=== PATIENT | male | born 1960 | race Caucasian/White ===

== ENCOUNTER 2023-04-23 06:29 | Day surgery (SDC) | payer OTHER, SELFPAY ==
[2023-04-23 06:39] VITALS: BMI 32.7
[2023-04-23 06:47] VITALS: BP 110/86; PULSE 93; RESP 16; TEMP 36.2; O2SAT 95
[2023-04-23] MEDS: Lactated Ringers 1,000 ML 80 ML IVCONT (07:25)
[2023-04-23] MEDS: Albuterol Sulfate 90 MCG 8 GM INHALER 2 PUFF INHALE (07:25)
--- NOTE | 2023-04-23 07:29 | HO.ANESPROP2 ---
HPI - Anesthesia Eval Consult details Narrative: for colonand upper endo PMFSH Past Medical History Medical History Arrhythmia Asthma Barretts esophagus Diverticulitis GERD (gastroesophageal reflux disease) Family History Family history of problems with anesthesia: No Surgical History Surgical History H/O colonoscopy H/O esophagogastroduodenoscopy H/O partial resection of colon History of Problems with Anesthesia: No Social History Social History Patient Tobacco Use Status: Never used Tobacco Use of substances other than those prescribed or required for medical reasons: No Are you DNR?: No Advance Directives: No Advance Directives Information Provided: Yes Recently lost weight without trying: No Nutrition Risks: No Nutritional Risk Meds Allergies Allergy/AdvReac Type Severity Reaction Status Date / Time No Known Allergies Allergy Unverified 07/18/20 16:50 Active Medications: Current Medications Lactated Ringer's (Lr) 1,000 mls @ 80 mls/hr IVCONT .[id number] MELISA Last Admin: 04/23/23 07:25 Dose: 80 mls/hr Sodium Biphosphate/Sodium Phosphate (Sodium Phosphate,[place]-Dibasic 133 Ml Enema) 133 ml CO ONCE PRN PRN Reason: Poor Colonoscopy Prep Results Home Medications Medication Instructions Recorded Confirmed Last Taken Type esomeprazole magnesium 40 mg 40 mg PO DAILY 04/22/23 04/22/23 Unknown History capsule,delayed release hydroxyzine HCl 50 mg tablet 50 mg PO QID PRN Anxiety 04/22/23 04/22/23 Unknown History melatonin 5 mg tablet 5 mg PO BEDTIME 04/22/23 04/22/23 Unknown History Exam Exam Date and Time: April 23, 2023 0729 Height,Weight and Vital Signs: Height 6 ft 2 in Weight 115.666 kg Last Vital Signs Temp 97.1 F 04/23/23 06:47 Pulse 93 04/23/23 06:47 Resp 16 04/23/23 06:47 BP 110/86 04/23/23 06:47 Pulse Ox 95 04/23/23 06:47 O2 Del Method Room Air 04/23/23 06:47 Airway Mallampati Class: II TM Dist: >3cm Neck ROM: Full Heart: rrr Lungs: cta Assessment and Plan Assessment Anesthesia Assessment: Anesthesia Plan Discussed and Chart Reviewed Final Anesthetic Review Family History of Problems with Anesthesia: No History of Problems with Anesthesia: No NPO: Yes ASA Class: II Final Preanesthetic Review: No Changes in Pt Med Stat, Meds/Allgs Chart Reviewed, Consent Obtained/Reviewed and Anes Risks/Benef Reviewed Patient Risk: Low Procedure Risk: Low Anesthetic Plan Anesthetic Plan: MAC: Disposition: Standard PACU
[2023-04-23 08:48] VITALS: BP 105/71; PULSE 89; RESP 16; TEMP 36.2; O2SAT 97
--- NOTE | 2023-04-23 08:55 | PM.OP ---
Brief Operative Note Date of Service: 04/23/23 Pre-op diagnosis: Castelan's, Screening Post-op diagnosis: other (Hiatal hernia, Colon polyp) Procedure: EGD with bx, Colonoscopy to the cecum with bx/removal of polyp Surgeon: Jose Miguel Glynn Anesthesia: MAC Was an Wood Boring Machine Operator used for this Procedure?: No Estimated blood loss (mL): 2.0 Pathology: other (A. EG Junction at 35cm B. Transverse colon polyp) Condition: stable Disposition: PACU
[2023-04-23 09:03] VITALS: BP 105/72; PULSE 89; RESP 20; TEMP 36.3; O2SAT 97
--- NOTE | 2023-04-23 09:45 | OP_ITS ---
DATE OF SERVICE: 04/23/2023 SURGEON: Jose Miguel Glynn MD INDICATIONS: The patient presents for followup of gastroesophageal reflux with associated Castelan's esophagus, personal history of tubular adenoma of the colon, and colorectal cancer screening. Full consent has been obtained from him for this, including risks of bleeding and perforation. PREOPERATIVE DIAGNOSIS: POSTOPERATIVE DIAGNOSIS: PROCEDURE PERFORMED: Esophagogastroduodenoscopy with biopsies, and colonoscopy to the cecum with biopsy and removal of polyp. ESTIMATED BLOOD LOSS: COMPLICATIONS: ANESTHESIA: Monitored anesthesia care. ASSISTANTS: SPECIMENS: PREOPERATIVE DIAGNOSES: Gastroesophageal reflux with Castelan's esophagus, personal history of tubular adenoma of the colon, and colorectal cancer screening. POSTOPERATIVE DIAGNOSES: Gastroesophageal reflux with Castelan's esophagus, personal history of tubular adenoma of the colon, and colorectal cancer screening, hiatal hernia, gastric polyps, colon polyp, diverticulosis, internal hemorrhoids, external hemorrhoids. DESCRIPTION OF PROCEDURE: The patient was placed in the left lateral decubitus position the Olympus video gastroscope was passed in the posterior oropharynx and upper esophagus under direct vision. The scope was passed slowly to the distal esophagus. The gastroesophageal junction appeared at 35 cm. There was some slight irregularity consistent with less than 1 cm areas of possible Castelan's mucosa. There was no esophagitis nor any lesions. The scope entered the stomach. There was a moderate-sized hiatal hernia. There were multiple hyperplastic appearing proximal gastric polyps. The scope was advanced to the pylorus and the duodenum was cannulated to the descending portion. The duodenum including the bulb appeared normal without mass or ulceration. The scope was withdrawn back in the stomach. The gastric antrum and body appeared normal with good peristalsis. The scope was retroflexed visualizing the proximal stomach carefully, which appeared normal, without any sign of mass or ulceration, other than the hyperplastic appearing gastric polyps. These were not biopsied as they had been in the past. The scope was straightened and withdrawn back to the esophagus. Biopsies were obtained at the EG junction at 35 cm. Proximal to this, the esophageal mucosa appeared normal. The scope was withdrawn from the patient. He was turned around for the colonoscopy. The digital rectal exam revealed no abnormalities other than external hemorrhoids. The Olympus video pediatric colonoscope was entered into the rectum and advanced easily to the cecum. Once in the cecum, I did identify normal-appearing cecal pouch with appendiceal orifice and a normal-appearing ileocecal valve. The entire cecum and ileocecal valve appeared normal. The scope was then slowly withdrawn assessing all mucosal surfaces carefully. Preparation was excellent. In the transverse colon was a 3 mm polyp, which was biopsied and completely removed with a cold biopsy forceps. There were scattered diverticulae in the transverse colon and descending colon. I did not visualize any other polyps, colitis, nor angiodysplasia. The anastomosis was visualized at 20 cm and appeared normal. I did not visualize any sign of colitis nor angiodysplasia. In the rectum, scope was retroflexed visualizing internal hemorrhoids, but no other pathology. The rectal mucosa appeared normal. The scope was straightened and withdrawn from the patient. He tolerated the procedure well and was returned to the recovery area in stable condition. IMPRESSION: 1. Hiatal hernia, history of Castelan's esophagus. 2. Gastric polyps. 3. Colon polyp. 4. Diverticulosis. PLAN: PLAN: The results of the biopsies will be checked. I would recommend a repeat upper endoscopy and colonoscopy in 5 years for further screening. He will continue his esomeprazole for relief of his reflux. He was advised not to use any aspirin or NSAIDs for 1 week. This has been discussed with his . MD JORDAN Hooker/MAGED / [id number] MTDNoel
== END 2023-04-23 09:34 | disposition home or self-care (01) ==
PROVIDERS: Visit Provider Internal Medicine
PROC: (CPT 45380; principal; 2023-04-23 07:30)
DX: Z12.11 Encounter for screening for malignant neoplasm of colon (principal); Z86.010 Personal history of colon polyps; D12.3 Benign neoplasm of transverse colon; K57.30 Diverticulosis of large intestine without perforation or abscess without bleeding; K64.8 Other hemorrhoids; K64.4 Residual hemorrhoidal skin tags; K21.9 Gastro-esophageal reflux disease without esophagitis; K22.70 Barrett's esophagus without dysplasia; K31.7 Polyp of stomach and duodenum; K44.9 Diaphragmatic hernia without obstruction or gangrene; Z90.49 Acquired absence of other specified parts of digestive tract; Z79.899 Other long term (current) drug therapy
CPT/HCPCS: 45380; 43239; 88305; 88342

== ENCOUNTER 2024-04-26 08:22 | Day surgery (SDC) | payer OTHER, SELFPAY ==
[2024-04-24 14:34] VITALS: BMI 33.6
--- NOTE | 2024-04-25 10:20 | HO.ANESPROP2 ---
Documented by User: Alondra Badillo NP 04/25/24 10:21 HPI - Anesthesia Eval Consult details Narrative: 63yo M for Upper Endoscopy [facility] Past Medical History Medical History Arrhythmia Asthma Barretts esophagus Diverticulitis GERD (gastroesophageal reflux disease) Family History Family history of problems with anesthesia: No Surgical History Surgical History H/O colonoscopy H/O esophagogastroduodenoscopy H/O partial resection of colon History of Problems with Anesthesia: No Social History Social History Patient Tobacco Use Status: Never used Tobacco Use of substances other than those prescribed or required for medical reasons: No Are you DNR?: No Advance Directives: No Advance Directives Information Provided: Yes Meds Allergies Allergy/AdvReac Type Severity Reaction Status Date / Time No Known Allergies Allergy Unverified 07/18/20 16:50 Home Medications ?Medication ?Instructions ?Recorded ?Confirmed ?Last Taken ?Type esomeprazole magnesium 40 mg 40 mg PO DAILY 04/22/23 04/24/24 Unknown History capsule,delayed release hydroxyzine HCl 50 mg tablet 50 mg PO QID PRN Anxiety 04/22/23 04/24/24 Unknown History melatonin 5 mg tablet 5 mg PO BEDTIME 04/22/23 04/24/24 Unknown History amlodipine 5 mg-benazepril 10 mg 1 cap PO DAILY 04/24/24 04/24/24 Unknown History capsule Exam Height,Weight and Vital Signs: Height 6 ft 2 in Weight 118.841 kg Assessment and Plan Assessment Anesthesia Assessment: Chart Reviewed Final Anesthetic Review Family History of Problems with Anesthesia: No History of Problems with Anesthesia: No Documented by User: Delvis Blair MD 04/26/24 10:35 [facility] Past Medical History Medical History Arrhythmia Asthma Barretts esophagus Diverticulitis GERD (gastroesophageal reflux disease) Surgical History Surgical History H/O colonoscopy H/O esophagogastroduodenoscopy H/O partial resection of colon Social History Social History Patient Tobacco Use Status: Never used Tobacco Use of substances other than those prescribed or required for medical reasons: No Are you DNR?: No Advance Directives: No Advance Directives Information Provided: Yes Meds Allergies Allergy/AdvReac Type Severity Reaction Status Date / Time No Known Allergies Allergy Unverified 07/18/20 16:50 Home Medications ?Medication ?Instructions ?Recorded ?Confirmed ?Last Taken ?Type esomeprazole magnesium 40 mg 40 mg PO DAILY 04/22/23 04/24/24 Unknown History capsule,delayed release hydroxyzine HCl 50 mg tablet 50 mg PO QID PRN Anxiety 04/22/23 04/24/24 Unknown History melatonin 5 mg tablet 5 mg PO BEDTIME 04/22/23 04/24/24 Unknown History amlodipine 5 mg-benazepril 10 mg 1 cap PO DAILY 04/24/24 04/24/24 Unknown History capsule Exam Airway Mallampati Class: II TM Dist: >3cm Neck ROM: Full Assessment and Plan Assessment Anesthesia Assessment: Anesthesia Plan Discussed Final Anesthetic Review NPO: Yes ASA Class: III Final Preanesthetic Review: No Changes in Pt Med Stat, Meds/Allgs Chart Reviewed, Consent Obtained/Reviewed and Anes Risks/Benef Reviewed Patient Risk: Intermediate Procedure Risk: Low Anesthetic Plan Anesthetic Plan: TIVA Disposition: Standard PACU
[2024-04-26 09:37] VITALS: BMI 33.1
[2024-04-26 09:41] VITALS: BP 126/94; PULSE 78; RESP 18; TEMP 36.2; O2SAT 98
[2024-04-26] MEDS: Lactated Ringers 1,000 ML 100 ML IVCONT (09:50)
[2024-04-26 10:34] VITALS: BP 113/89; PULSE 80; RESP 18; TEMP 36.1; O2SAT 95
--- NOTE | 2024-04-26 10:37 | PC.NURSE ---
24hr update documented on paper.
--- NOTE | 2024-04-26 10:38 | P.BOP_ITS ---
Brief Operative Note Date of Service: 04/26/24 Pre-op diagnosis: Castelan's with low grade dysplasia Post-op diagnosis: other (Same, Hiatal hernia) Procedure: EGD with biopsies, WATS brushings, and TissueCypher analysis Surgeon: Jose Miguel Glynn MD Anesthesia: MAC Was an Floating Derrick Operator used for this Procedure?: No Estimated blood loss (mL): 2.0 Pathology: other (A. EG Junction at 35cm) Condition: stable Disposition: PACU
[2024-04-26 10:49] VITALS: BP 144/92; PULSE 83; RESP 17; TEMP 36.4; O2SAT 98
--- NOTE | 2024-04-26 12:31 | OP_ITS ---
DATE OF SERVICE: 04/26/2024 SURGEON: Jose Miguel Glynn MD INDICATIONS: The patient presents for evaluation of gastroesophageal reflux, Castelan's esophagus with low-grade dysplasia, and known hiatal hernia. Full consent has been obtained from him for this, including risks of bleeding and perforation. PREOPERATIVE DIAGNOSIS: POSTOPERATIVE DIAGNOSIS: PROCEDURE PERFORMED: Esophagogastroduodenoscopy with biopsies, and WATS brushings. Tissue specimen was also sent for tissue Cypher analysis. ESTIMATED BLOOD LOSS: COMPLICATIONS: ANESTHESIA: Monitored anesthesia care. ASSISTANTS: SPECIMENS: PREOPERATIVE DIAGNOSES: Castelan's esophagus with low-grade dysplasia, gastroesophageal reflux, hiatal hernia. POSTOPERATIVE DIAGNOSES: Castelan's esophagus with low-grade dysplasia, gastroesophageal reflux, hiatal hernia. DESCRIPTION OF PROCEDURE: The patient was placed in the left lateral decubitus position. The Olympus video gastroscope was passed in the posterior oropharynx and upper esophagus under direct vision. The scope was passed slowly to the distal esophagus. The gastroesophageal junction was seen at 35 cm. There were small, less than 1 cm, areas of Castelan's-appearing mucosa right at the EG junction. It would basically prolapse into the esophagus from the hiatal hernia. It was difficult to obtain specimens from that area due to the patient's breathing, coughing, and the hiatal hernia. The scope was advanced to the pylorus and the duodenum was cannulated to the descending portion. The duodenum including the bulb appeared normal without mass or ulceration. The scope was withdrawn back in the stomach. The gastric antrum and body appeared normal with good peristalsis. The scope was retroflexed, visualizing the proximal stomach carefully, which revealed his known multiple hyperplastic-appearing gastric polyps, but no sign of any mass or ulceration. The scope was straightened and withdrawn back in the esophagus. Again, it was difficult to sit at the EG junction due to his breathing, coughing, and the hiatal hernia. However, I did obtain multiple biopsies from right at the EG junction at 35 cm from the Castelan's-appearing mucosa. I then obtained WATS brushings from the same area, although I am suspicious that the tissue collection with brushings may not be ideal. Proximal to the EG junction, the esophageal mucosa appeared normal. The scope was withdrawn from the patient. He tolerated the procedure well and was returned to the recovery area in stable condition. IMPRESSION: 1. Moderate-sized hiatal hernia. 2. History of Castelan's esophagus with low-grade dysplasia. 3. Known gastric polyps. PLAN: The results of the biopsies will be checked. Of note, tissue has also been sent from the site at the EG junction for a Cypher test. He will continue his evening dose of Nexium 40 mg. He does report that he is trying not to eat for 2 to 3 hours before going to sleep. He still has occasional symptoms of nocturnal heartburn nonetheless. I will plan to see him in followup in the office to review the results of the biopsies, plan further biopsies as needed and/or consider ablation if indeed, there is evidence of dysplasia persisting. If his reflux continues to be a problem despite trying to improve his lifestyle, then we could consider hiatal hernia surgery. As we have reviewed in the past, I do think a big part of his reflux is that of his weight and dietary habits. MD JORDAN Hooker/MAGED / [id number] MTDD
== END 2024-04-26 11:20 | disposition home or self-care (01) ==
PROVIDERS: PCP Pediatrics; Visit Provider Internal Medicine
PROC: 0DJ08ZZ Inspection of Upper Intestinal Tract, Via Natural or Artificial Opening Endoscopic (ICD-10-PCS; CPT 43235; principal; 2024-04-26 09:30)
DX: K22.710 Barrett's esophagus with low grade dysplasia (principal); K21.9 Gastro-esophageal reflux disease without esophagitis; K44.9 Diaphragmatic hernia without obstruction or gangrene; K31.7 Polyp of stomach and duodenum; I10 Essential (primary) hypertension; J45.909 Unspecified asthma, uncomplicated; Z79.899 Other long term (current) drug therapy; Z90.49 Acquired absence of other specified parts of digestive tract; Z98.890 Other specified postprocedural states
CPT/HCPCS: 43239; 88305; 88313; J2704

== ENCOUNTER 2025-04-27 06:27 | Day surgery (SDC) | payer OTHER, SELFPAY ==
--- OUTSIDE RECORDS SUMMARY | 2025-03-29 10:50 | XMS_ITS | Patient Health Record ---
Author Organization [facility] Address [address] [place] [address] Care Team Providers Care Brake Rider Name Role Phone Mary Beebe Primary Care Provider Jose Miguel Arevalo [phone] Allergies No Known Allergies Results Component Value Reference Range Notes Pathology Reviewed date:07/20/2024 07:18:00 PM Interpretation: Performing Lab:[facility], [address] [place] [id number] Notes/Report: Name: Fransico Castrejon Age/Sex: 63/M : 1960 Unit#: [id number] Attend Dr: Jose Miguel Monteiro MD Re04/26/24 Status : [facility] Location: [facility] Disch: SPEC : [id number] RECD : 04/26/24-1137 STATUS: CECIL DENISE NUM: [id number] JEFFERSON: 04/26/24-[address]: Jose Miguel Monteiro MD ENTERED: 04/26/24-11 56 SP TYPE: Surgical OTHR DR: Mary Beebe MD ORDERED: HE Stain/3 , Gross Micro L4, Special st. 2, Eso bx BA w/exc, AB/PAS COMMENTS: 8 unstaine d slides sent to [employer] for TissueCypher on 05/05/24. Addendum Addendum 1 Entered: 06/05/24 TissueCypher results: Risk Class:? Intermediate Risk Score:? 5.7 (range 0 ? 10) 5-year probability o f progression:? 8 % See full report in t EMR - report/pathology section as a scanned report (camera icon). Addendum Signed ____ __(signature on file) Francia La Barge 06/05/24 173 Diagnosis Esophagogastric junc tion, at 35 cm, biopsy: Squamocolumnar mucosa with mild chronic active inflammation, hyperplasia, and focal intestinal metaplasia; negative for dysplasia (see comment). Comment: These findi ngs are consistent with Castelan?s esophagus if the biopsies were taken from above the anatomic gastroesophageal junction. Clinical and endoscopic correlation is advised. Clinical History Pre-Op Dx: Castelan's esophagus, GERD Post-Op Dx: Hiatal h ernia, reflux, hx Castelan's Microscopic Description Microscopic sections reviewed. AB/PAS is positive for intestinal metaplasia. Control stains appropriately. CONTINUED ON NEXT PAGE Name: Fransico Castrejon Age/Sex: 63/M : 1960 Unit#: [id number] Attend Dr: Jose Miguel Monteiro MD Re04/26/24 Status : [facility] Location: [facility] Disch: SPEC : [id number] RECD : 04/26/247 STATUS: CECIL DENISE NUM: [id number] JEFFERSON: 04/26/24-[address] [facility] DR: Jose Miguel Monteiro MD ENTERED: 04/26/24-11 56 SP TYPE: Surgical OTHR DR: Mary Beebe MD ORDERED: HE Stain/3, Gross Micro L4, Special st. 2, Eso bx BA w/exc, AB/PAS COMMENTS: 8 unstaine d slides sent to [employer] for TissueCypher on 05/05/24. Material Received EG junction at 35 cm , hx of Castelan's Gross Description Received in formalin labeled ?EG junction at 35 cm? are 5 barahona-pink and pink-red irregular tissue fragments eac h measuring 0.25 cm with scant red-maroon blood, submitted in toto in a cassette labeled A. CEDS Special studies orde red and performed: AB/PAS stains on A1. Copies To: Mary Beebe MD [facility] [address] [place] [address] Jose Miguel Monteiro MD [address] [place] [phone] Signed (si gnature on file) Francia Charisse 04/27/24 1557 END OF REPORT Reason For Referral Referring Provider First Name Mary Referring Provider Last Name Ny Referring Provider Speciality Internal M edicine Referred Organization [facility] Referred Provider Jose Miguel Monteiro Referred Address [address] [place] [address],[place], [place],[address], Referred Provider Specialty Gastroentero logy General Notes Roslyn Logan 024 10:28:53 AM EST > REQUESTED A [facility] REFERRAL FROM DR MARY BEEBE'S OFFICE FOR VISIT WITH DR MONTEIRO ON [phone] Referral Priority Routine Medications Medication SIG (Take, Route, Frequency, Duration) Notes Start Date End Date Status Melatonin 5 MG 1 tablet in the even ing Orally Once a day for 30 day(s) Active hydrOXYzine HCl 50 MG TAKE 1 TABLET BY M OUTH 4 TIMES A DAY NEEDED FOR ANXIETY Oral for 10 Active Tylenol 325 MG 1 tablet as needed O rally every 4 hrs Active Esomeprazole Magnesium 40 MG TAKE 1 CAPSULE Orally Twice a day for 90 days Active amLODIPine Besy-Benazepril HCl 5-10 MG TAKE 1 CAPSULE BY MOUTH DAILY 90 DAYS, FOR MANAGEMENT OF HIGH BLOOD PRESSURE. Oral for 90 Active Immunizations Vaccine Route Administration Date Status Comme nts Influenza Unknown 09/01/2018 Administered Influenza Unknown 08/13/2021 Administered Influenza Unknown 09/15/2022 Refused Influenza Unknown 11/10/2024 Refused Problems Problem Type SNOMED Code ICD Code Onset Dates Problem Status W/U Status Risk Notes Problem Gastro-esophageal reflux disease without esophagitis (640144020) Gastro-esophageal reflux disease without esophagitis (K21.9) Active confirmed Problem Screening for malignant neoplasm of colon (784776910) Encounter for screening for malignant neoplasm of colon (Z12.11) Active confirmed Problem 870982262 History of adenomatous polyp of colon (Z86.010) Active confirmed Problem Benign neoplasm of stomach (46389619) Polyp of stomach and duodenum (K31.7) Active confirmed Problem Diverticular disease of colon (581168239) Diverticulosis of large intestine without perforation or abscess without bleeding (K57.30) Active confirmed Problem History of gastrointestinal tract bypass (487536865) Intestinal bypass and anastomosis status (Z98.0) Active confirmed Problem 037196198 Gastroesophageal reflux disease without esophagitis (K21.9) Active confirmed Problem 941233707 Castelan''s esophagus without dysplasia (K22.70) Active confirmed Problem Castelan's esophagus (283056104) 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) Active confirmed Vital Signs Temperature 97.7 degrees Fahrenheit 11/10/2024 Blood pressure diastolic 00 mm Hg 11/10/2024 Height 74 in 11/10/2024 Blood pressure systolic 000 mm Hg 11/10/2024 Weight 249 lb 6 oz lbs 11/10/2024 BMI 32.01 kg/m2 11/10/2024 Encounters Encounter Location Date Provider Diagnosis [facility] [address] [place], [place] [id number] 04/26/2024 Jose Miguel Monteiro Castelan''s esophagus with low grade dysplasia K22.710 ; Hiatal hernia K44.9 ; Polyp of stomach and duodenum K31.7 and Gastro-esophageal reflux disease without esophagitis K21.9 [facility] [address] [place] [phone] 11/10/2024 Jose Miguel Monteiro Castelan''s esophagus with low grade dysplasia K22.710 ; Hiatal hernia K44.9 and Gastro-esophageal reflux disease without esophagitis K21.9 [facility] [address] [place] [phone] 06/11/2024 Jose Miguel Monteiro [facility] [address] [place] [address] 10/19/2024 Jose Miguel Monteiro Assessments Encounter Date Diagnosis (ICD Code) Assessment Notes Treatment Notes Treatment Clinical Notes Section Notes 04/26/2024 Hiatal hernia (ICD-10 - K44.9) 04/26/2024 Castelan''s esophagus with low grade dysplasia (ICD-10 - K22.710) 11/10/2024 Hiatal hernia (ICD-10 - K44.9) Overall, Rhina appears quite well. We did review his history of the chronic reflux, hiatal hernia, and Castelan's esophagus with associated dysplasia in detail today. We did review the significance of dysplasia and the increased risk for esophageal cancer. At this point, given the biopsies and brushings that were negative for dysplasia last April, but his previous history of dysplasia seen on previous biopsies, I would be inclined to continue to keep a close eye on things with another upper endoscopy this coming April. In the meantime, I did advise him to stay on the PPI at least once a day but takem it twice a day as needed. I did advise him to certainly continue to try to lose weight, watch his food intake, and eat small meals. We did review the potential for hiatal hernia surgery but at this point he would like to try to avoid that. We also discussed that at some point he may need consideration for endoscopic ablation of the Castelan's tissue if there is evidence of persistent low-grade dysplasia, or certainly if there is evidence of high-grade dysplasia again. Full consent was obtained from him for his upper endoscopy including risks of bleeding and perforation. The procedure will be done with monitored anesthesia care. We did review that he will be due for a colonoscopy in 2027 for screening. Rhina was comfortable with this plan. Thank you again for allowing me to participate in Rhina's care. I shall continue to keep you advised of his progress. 11/10/2024 Castelan''s esophagus with low grade dysplasia (ICD-10 - K22.710) Continue the Esomeprazole once or twice a day for the reflux Continue to watch diet, limit meal size, lose weight, etc Overall, Rhina appears quite well. We did review his history of the chronic reflux, hiatal hernia, and Castelan's esophagus with associated dysplasia in detail today. We did review the significance of dysplasia and the increased risk for esophageal cancer. At this point, given the biopsies and brushings that were negative for dysplasia last April, but his previous history of dysplasia seen on previous biopsies, I would be inclined to continue to keep a close eye on things with another upper endoscopy this april. In the meantime, I did advise him to stay on the PPI at least once a day but takem it twice a day as needed. I did advise him to certainly continue to try to lose weight, watch his food intake, and eat small meals. We did review the potential for hiatal hernia surgery but at this point he would like to try to avoid that. We also discussed that at some point he may need consideration for endoscopic ablation of the Castelan's tissue if there is evidence of persistent low-grade dysplasia, or certainly if there is evidence of high-grade dysplasia again. Full consent was obtained from him for his upper endoscopy including risks of bleeding and perforation. The procedure will be done with monitored anesthesia care. We did review that he will be due for a colonoscopy in 2027 for screening. Rhina was comfortable with this plan. Thank you again for allowing me to participate in Rhina's care. I shall continue to keep you advised of his progress. 04/26/2024 Polyp of stomach and duodenum (ICD-10 - K31.7) 11/10/2024 Gastro-esophage al reflux disease without esophagitis (ICD-10 - K21.9) Overall, Rhina appears quite well. We did review his history of the chronic reflux, hiatal hernia, and Castelan's esophagus with associated dysplasia in detail today. We did review the significance of dysplasia and the increased risk for esophageal cancer. At this point, given the biopsies and brushings that were negative for dysplasia last April, but his previous history of dysplasia seen on previous biopsies, I would be inclined to continue to keep a close eye on things with another upper endoscopy this april. In the meantime, I did advise him to stay on the PPI at least once a day but takem it twice a day as needed. I did advise him to certainly continue to try to lose weight, watch his food intake, and eat small meals. We did review the potential for hiatal hernia surgery but at this point he would like to try to avoid that. We also discussed that at some point he may need consideration for endoscopic ablation of the Castelan's tissue if there is evidence of persistent low-grade dysplasia, or certainly if there is evidence of high-grade dysplasia again. Full consent was obtained from him for his upper endoscopy including risks of bleeding and perforation. The procedure will be done with monitored anesthesia care. We did review that he will be due for a colonoscopy in 2027 for screening. Rhina was comfortable with this plan. Thank you again for allowing me to participate in Rhina's care. I shall continue to keep you advised of his progress. 04/26/2024 Gastro-esophage al reflux disease without esophagitis (ICD-10 - K21.9) Plan Of Treatment Future Test Test Name Order Date COLONOSCOPY 04/17/2015 UPPER GI ENDOSCOPY 05/03/2015 UPPER GI ENDOSCOPY 09/01/2019 UPPER GI ENDOSCOPY 09/15/2022 COLONOSCOPY 09/15/2022 UPPER GI ENDOSCOPY 03/07/2024 UPPER GI ENDOSCOPY 11/10/2024 Next Appt Details Provider Name:Jose Miguel Monteiro , 04/27/2025 07:30:00 AM, [address] [place] [address], [phone], Insurance Providers Payer Name Payer Address Payer Phone Subscriber Number Group Number Insured Name Patient Relationship to Insured Coverage Start Date Coverage End Date [employer] [address] PATEL SHUKLA [phone] [id number] [facility] Durán Self - patient is the insured Medical (General) History Medical History History ICD Code GERD with Castelan's esophagu s and HH-EGD in 07/2012 with small area of Castelan's and indefinite dysplasia. He had a followup endoscopy in April of 2013 with the finding of the small area of Castelan's esophagus and a tiny area of low-grade dysplasia. He subsequently underwent a 24-hour pH study off the Nexium and this was positive for acid reflux. He also had an esophageal motility study showing normal relaxation of the lower esophageal sphincter, normal esophageal peristalsis, and borderline low esophageal contractility. His EGD in 12/2013 revealed the small area of Castelan's and no dysplasia, as well as the hiatal hernia--he had previously seen Dr. Ray for consideration of a hiatal hernia repair, but he ultimately decided against that. EGD in 11/2015 with Castelan's but no dysplasia Colonoscopy in August 2009 with a tubular adenoma; neg. colonoscopy in 11/2015 except for internal hemorrhoids mild diverticulosis proximal to his colonic anastomosis Diverticulitis-surgery as below Denies IL,DM,CVA,Lung disease,renal dise ase Asthma--? in relation to his reflux and hiatal hernia EGD in 11/2019 with a small a jo ann of Castelan's and no dysplasia--moderate-sized hiatal hernia again noted Hypertension Upper endoscopy in April revealed his known hiatal hernia and small area of Castelan's esophagus, but biopsies revealed evidence of low-grade dysplasia and a very questionable area of high-grade dysplasia Colonoscopy in April of 2023 revealed a small tubular adenoma that was removed Upper endoscopy in April revealed his known moderate size hiatal hernia and small areas of Castelan's esophagus of less than 1 cm. There was no esophagitis. Biopsies were negative for dysplasia and the WATS brushings were also negative for dysplasia. The tissue Cypher test showed intermediate risk of progression of the Castelan's dysplasia over a 5 year period Surgical History Surgery Date(Month/Year) Sigmoid resection for diverticulitis in 12/2010
[2025-04-25 13:34] VITALS: BMI 32.0
--- NOTE | 2025-04-26 12:12 | HO.ANESPROP2 ---
HPI - Anesthesia Eval Consult details Narrative: 64[facility] Past Medical History Medical History Arrhythmia Asthma Diverticulitis Barretts esophagus GERD (gastroesophageal reflux disease) Family History Family history of problems with anesthesia: No Surgical History Surgical History H/O partial resection of colon H/O colonoscopy H/O esophagogastroduodenoscopy History of Problems with Anesthesia: No Social History Social History Are you a primary resident care assistant to a significant other at home: No Do you presently have visiting nurse or other home services: No Patient Tobacco Use Status: Never used Tobacco Are you DNR?: No Advance Directives: No Advance Directives Information Provided: Yes Poor oral hygiene: No Meds Allergies Allergy/AdvReac Type Severity Reaction Status Date / Time No Known Allergies Allergy Verified 04/27/25 06:45 Home Medications ?Medication ?Instructions ?Recorded ?Confirmed ?Last Taken ?Type esomeprazole magnesium 40 mg 40 mg PO DAILY 04/22/23 04/25/25 Unknown History capsule,delayed release hydroxyzine HCl 50 mg tablet 50 mg PO QID PRN Anxiety 04/22/23 04/25/25 Unknown History melatonin 5 mg tablet 5 mg PO BEDTIME 04/22/23 04/25/25 Unknown History amlodipine 5 mg-benazepril 10 mg 1 cap PO DAILY 04/24/24 04/25/25 Unknown History capsule fluticasone 250 mcg-salmeterol 50 inhalation 04/27/25 04/27/25 Unknown History mcg/dose blistr powdr for inhalation (Wixela Inhub) mepolizumab 100 mg/mL subcutaneous mg subcut 04/27/25 04/27/25 Unknown History auto-injector (Nucala) quetiapine 25 mg tablet 25 mg PO BEDTIME 04/27/25 04/27/25 Unknown History sertraline 50 mg tablet mg PO 04/27/25 04/27/25 Unknown History Exam Height,Weight and Vital Signs: Height 6 ft 2 in Weight 113.115 kg Assessment and Plan Assessment Anesthesia Assessment: Chart Reviewed Final Anesthetic Review Family History of Problems with Anesthesia: No History of Problems with Anesthesia: No
[2025-04-27 06:42] VITALS: BMI 30.6
[2025-04-27] MEDS: Lactated Ringers 1,000 ML 100 ML IVCONT (06:54)
[2025-04-27 06:55] VITALS: BP 118/71; PULSE 66; RESP 18; TEMP 36.7; O2SAT 99
--- NOTE | 2025-04-27 07:31 | HO.ANESPROP2 ---
[facility] Past Medical History Medical History Arrhythmia Asthma Diverticulitis Barretts esophagus GERD (gastroesophageal reflux disease) Functional capacity: independent ambulation Family History Family history of problems with anesthesia: No Surgical History Surgical History H/O partial resection of colon H/O colonoscopy H/O esophagogastroduodenoscopy History of Problems with Anesthesia: No Social History Social History Are you a primary healthcare administrator to a significant other at home: No Do you presently have visiting nurse or other home services: No Patient Tobacco Use Status: Never used Tobacco Are you DNR?: No Advance Directives: No Advance Directives Information Provided: Yes Poor oral hygiene: No Meds Allergies Allergy/AdvReac Type Severity Reaction Status Date / Time No Known Allergies Allergy Verified 04/27/25 06:45 Active Medications: Current Medications Albuterol Sulfate (Albuterol Sulfate (0.083%) 2.5 Mg/3 Ml Vial.Neb) 2.5 mg INHALE ONCE PRN PRN Reason: Shortness of Breath/Wheezing Lactated Ringer's (Lr) 1,000 mls @ 100 mls/hr IVCONT .Q10H MELISA Last Admin: 04/27/25 06:54 Dose: 100 mls/hr Home Medications ?Medication ?Instructions ?Recorded ?Confirmed ?Last Taken ?Type esomeprazole magnesium 40 mg 40 mg PO DAILY 04/22/23 04/25/25 Unknown History capsule,delayed release hydroxyzine HCl 50 mg tablet 50 mg PO QID PRN Anxiety 04/22/23 04/25/25 Unknown History melatonin 5 mg tablet 5 mg PO BEDTIME 04/22/23 04/25/25 Unknown History amlodipine 5 mg-benazepril 10 mg 1 cap PO DAILY 04/24/24 04/25/25 Unknown History capsule fluticasone 250 mcg-salmeterol 50 inhalation 04/27/25 04/27/25 Unknown History mcg/dose blistr powdr for inhalation (Wixela Inhub) mepolizumab 100 mg/mL subcutaneous mg subcut 04/27/25 04/27/25 Unknown History auto-injector (Nucala) quetiapine 25 mg tablet 25 mg PO BEDTIME 04/27/25 04/27/25 Unknown History sertraline 50 mg tablet mg PO 04/27/25 04/27/25 Unknown History Exam Height,Weight and Vital Signs: Height 6 ft 2 in Weight 108.227 kg Last Vital Signs Temp 98.0 F 04/27/25 06:55 Pulse 66 04/27/25 06:55 Resp 18 04/27/25 06:55 BP 118/71 04/27/25 06:55 Pulse Ox 99 04/27/25 06:55 O2 Del Method Room Air 04/27/25 06:55 Airway Mallampati Class: II TM Dist: >3cm Neck ROM: Full Heart: RRR Lungs: CTA Assessment and Plan Assessment Anesthesia Assessment: Anesthesia Plan Discussed Final Anesthetic Review Family History of Problems with Anesthesia: No History of Problems with Anesthesia: No NPO: Yes ASA Class: II Final Preanesthetic Review: Meds/Allgs Chart Reviewed, Consent Obtained/Reviewed and Anes Risks/Benef Reviewed Patient Risk: Low Procedure Risk: Low Anesthetic Plan Anesthetic Plan: MAC: Disposition: Standard PACU
[2025-04-27 08:12] VITALS: BP 79/50; PULSE 68; RESP 16; TEMP 36.1; O2SAT 96
--- NOTE | 2025-04-27 08:20 | P.BOP_ITS ---
Brief Operative Note Date of Service: 04/27/25 Pre-op diagnosis: Castelan's Post-op diagnosis: other (Same, Hiatal hernia) Procedure: EGD with biopsies, WATS brushings, and Cypher study Surgeon: Jose Miguel Glynn MD Anesthesia: MAC Was an Community Marketing Manager used for this Procedure?: No Estimated blood loss (mL): 2.0 Pathology: other (A. EG Junction at 35cm B. Gastric antrum) Condition: stable Disposition: PACU
[2025-04-27 08:27] VITALS: BP 112/75; PULSE 68; RESP 18; TEMP 36.3; O2SAT 97
--- NOTE | 2025-04-27 08:55 | OP_ITS ---
DATE OF SERVICE: 04/27/2025 SURGEON: Jose Miguel Glynn MD PREOPERATIVE DIAGNOSIS: Castelan esophagus with low-grade dysplasia. POSTOPERATIVE DIAGNOSIS: PROCEDURE PERFORMED: Esophagogastroduodenoscopy with biopsies with WATS brushings, and Cypher study. Full consent obtained from him for this, including risks of bleeding and perforation. ESTIMATED BLOOD LOSS: COMPLICATIONS: ANESTHESIA: Monitored anesthesia care. ASSISTANTS: SPECIMENS: POSTOPERATIVE DIAGNOSES: Castelan esophagus with low-grade dysplasia, hiatal hernia, gastritis. DESCRIPTION OF PROCEDURE: The patient was placed in the left lateral decubitus position. The Olympus video gastroscope was passed in the posterior oropharynx and upper esophagus under direct vision. The scope was passed slowly to the distal esophagus. The gastroesophageal junction appeared at 35 cm. The distal esophagus was somewhat tortuous. The gastroesophageal junction was slightly irregular with small, less than 1 cm areas of Castelan's appearing mucosa. Most of the time, the irregular EG junction and small areas of Castelan's mucosa were prolapsing in and out of the hiatal hernia. There was no esophagitis nor any lesions. There was a moderate-sized hiatal hernia. The scope was advanced to the pylorus, and the duodenum was cannulated to the descending portion. The duodenum including the bulb appeared normal without mass or ulceration. The scope was withdrawn back to the stomach. The gastric antrum had some areas of erythema and some edema, but no erosions or ulceration. There was good peristalsis. Biopsies were obtained from the antrum. The scope was retroflexed visualizing the proximal stomach carefully, which appeared normal, other than some hyperplastic appearing gastric polyps. There was no sign of any mass nor ulceration. The scope was straightened. The scope was then withdrawn back to the esophagus. I obtained multiple biopsies of the EG junction at 35 cm. Again, it was a difficult area to obtain biopsies from in regard to trying to obtain biopsies from the small areas of the Castelan-appearing mucosa. I then obtained brushings for the WATS study from the same area. Proximal to 35 cm, the esophageal mucosa appeared normal. Scope was withdrawn from the patient. He tolerated the procedure well and was returned to recovery area in stable condition. IMPRESSION: 1. History of Castelan's esophagus with low-grade dysplasia. 2. Hiatal hernia. 3. Rule out gastritis. PLAN: The results of biopsies will be checked. Further endoscopy surveillance intervals will be based on today's findings. Certainly, if there are any changes of high-grade dysplasia, then we would refer him for ablation therapy of the Castelan esophagus. He presently reports using Nexium once a day and feeling well on that as he has tried to watch his diet, stopped eating late at night after he gets home from work, and is trying to lose weight. If need be, he can always increase the Nexium to twice a day based on the symptoms. He will be seen in followup. MD JORDAN Hooker/MAGED / [id number] MTDD
--- NOTE | 2025-04-27 09:36 | HO.POSTANES ---
Post Anesthesia Evaluation Post Anesthesia Evaluation Date of Service: 04/27/25 Vital Signs: Vital Signs Temp Pulse Resp BP Pulse Ox O2 Del Method 04/27/25 08:27 97.4 F 68 18 112/75 97 Room Air 04/27/25 08:12 97 F 68 16 79/50 L 96 Room Air 04/27/25 06:55 98.0 F 66 18 118/71 99 Room Air Anesthesia: Monitored Mental Status: Awake Pain Control: Satisfactory Nausea/Vomiting: None Hydration: Adequate Anesthesia-Related Issues: No Anes. Related Issues
== END 2025-04-27 09:02 | disposition home or self-care (01) ==
PROVIDERS: PCP Pediatrics; Visit Provider Internal Medicine
PROC: 0DJ08ZZ Inspection of Upper Intestinal Tract, Via Natural or Artificial Opening Endoscopic (ICD-10-PCS; CPT 43235; principal; 2025-04-27 07:30)
DX: K22.710 Barrett's esophagus with low grade dysplasia (principal); K29.60 Other gastritis without bleeding; K21.9 Gastro-esophageal reflux disease without esophagitis; K44.9 Diaphragmatic hernia without obstruction or gangrene; J45.909 Unspecified asthma, uncomplicated; Z79.899 Other long term (current) drug therapy
CPT/HCPCS: 43239; 88305; 88313; 88342; J2003; J2704